=== PATIENT | male | born 1975 | race Caucasian/White ===

== ENCOUNTER 2023-07-20 17:41 | Emergency (ER) | payer OTHER | END 2023-07-20 19:24 | disposition home or self-care (01) | LOC: MW.ED 17:41 | DX: S09.90XA Unspecified injury of head, initial encounter (principal); Z88.0 Allergy status to penicillin; Z75.8 Other problems related to medical facilities and other health care; Z79.899 Other long term (current) drug therapy; Z89.022 Acquired absence of left finger(s); W20.8XXA Other cause of strike by thrown, projected or falling object, initial encounter; Y93.89 Activity, other specified; Y99.0 Civilian activity done for income or pay | CPT/HCPCS: 70450; 70450-26; 72125; 72125-26; 99282; 99283 ==